=== PATIENT | female | born 1960 | race Caucasian/White ===

== ENCOUNTER 2024-10-11 15:31 | Emergency (ER) | payer OTHER ==
[2024-10-11 15:55] VITALS: BP 152/82; PULSE 73; RESP 18; TEMP 97.8; BMI 23.0
[2024-10-11] MEDS ORDERED: IBUPROFEN 600 MG TABLET (FP) PO ONE (15:58)
[2024-10-11] MEDS: IBUPROFEN 600 MG TABLET (FP) PO ONE (16:03)
== END 2024-10-11 18:43 | disposition home or self-care (01) ==
LOC: EDSEX → FER 15:31
DX: S50.311A Abrasion of right elbow, initial encounter (principal); W01.0XXA Fall on same level from slipping, tripping and stumbling without subsequent striking against object, initial encounter
CPT/HCPCS: 73590-TC-RT-FY; 73610-TC-RT-FY; 73630-TC-RT-FY; 99283-25